=== PATIENT | male | born 1960 | race Caucasian/White ===

== ENCOUNTER 2016-11-19 17:21 | Emergency (ER) | payer SELFPAY ==
[2016-11-19] MEDS ORDERED: LORazepam 2 MG/ML VIAL ONE (17:57)
[2016-11-19] MEDS: LORazepam 1 MG TABLET PO ONE (18:03)
[2016-11-19] MEDS ORDERED: THIAMINE HCL 100 MG/ML 2ML VIAL ONE (18:19)
[2016-11-19] MEDS ORDERED: 0.9 % SODIUM CHLORIDE 1,000 ML IV ONE (18:19)
[2016-11-19] MEDS ORDERED: MVI, ADULT NO.1 WITH VIT K 10 ML VIAL IV ONE (18:21)
[2016-11-19] MEDS: THIAMINE HCL 100 MG, MVI, ADULT NO.1 WITH VIT K 10 ML, FOLIC ACID 5 MG in 0.9 % SODIUM ... IV SCH ×4 (18:30)
[2016-11-19 18:47] LABS: BASOPHILS % 0.5 (0.0-1.5); EOSINOPHILS % 2.4 % (0.0-6.8); MEAN CORPUSCULAR VOLUME 101.7 fl (80.0-100.0); MONOCYTES % 4.7 % (0.0-11.0); NEUTROPHILS # 7.5 # k/uL (1.4-7.7)
[2016-11-19 18:50] LABS: eGFR (African) > 60; eGFR (Non-African) > 60
[2016-11-19] MEDS: LORazepam 2 MG/ML VIAL IVP ONE (18:54)
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
[2016-11-19 19:51] VITALS: BP 135/82
== END 2016-11-19 19:40 | disposition short-term general hospital (02) ==
LOC: ED 17:21
DX: S01.111A Laceration without foreign body of right eyelid and periocular area, initial encounter (principal); T65.891A Toxic effect of other specified substances, accidental (unintentional), initial encounter; W19.XXXA Unspecified fall, initial encounter; Y93.9 Activity, unspecified; Y99.9 Unspecified external cause status
CPT/HCPCS: 80053; 80320; 85025; J2060; J3411; J3490; J7030; 96361; 96374; 96375; 99284; G0480; S1016

== ENCOUNTER 2016-12-27 20:28 | Emergency (ER) | payer OTHER ==
[2016-12-27] MEDS ORDERED: 0.9 % SODIUM CHLORIDE 1,000 ML IV SCH (21:00)
[2016-12-27] MEDS: KETOROLAC TROMETHAMINE 30 MG/1ML VIAL IVP ONE (21:30)
[2016-12-27] MEDS: THIAMINE HCL 100 MG, MVI, ADULT NO.1 WITH VIT K 10 ML, FOLIC ACID 5 MG in 0.9 % SODIUM ... IV SCH ×4 (21:30)
[2016-12-27] MEDS ORDERED: MVI, ADULT NO.1 WITH VIT K 10 ML VIAL IV ONE (21:32)
[2016-12-27] MEDS ORDERED: THIAMINE HCL 100 MG/ML 2ML VIAL ONE (21:32)
[2016-12-27] MEDS ORDERED: FOLIC ACID 5 MG/1 ML ONE (21:32)
[2016-12-27] MEDS ORDERED: 0.9 % SODIUM CHLORIDE 1,000 ML IV ONE (21:32)
[2016-12-27 22:18] LABS: BASOPHILS % 0.4 (0.0-1.5); EOSINOPHILS % 2.6 % (0.0-6.8); MEAN CORPUSCULAR HEMOGLOBIN 34.5 pg (28.0-34.0); MEAN CORPUSCULAR VOLUME 104.9 fl (80.0-100.0); MONOCYTES % 6.5 % (0.0-11.0); NEUTROPHILS # 4.9 # k/uL (1.4-7.7)
[2016-12-27 22:29] LABS: eGFR (African) > 60; eGFR (Non-African) > 60
--- NOTE | 2016-12-27 23:35 | ED Physician Documentation ---
General Adult - HISTORIAN Historian: patient, paramedics - HPI Stated Complaint: passed out Chief Complaint: General Adult Additional Information: inebriated Onset: other (unknown) Timing: still present Severity: moderate Modifying Factors: intoxicated Further Comments: no - ROS CONST: no problems EYES/ENT: none CVS/RESP: none GI/: none MS/SKIN/LYMPH: none NEURO/PSYCH: other (intoxicated to the point of passing out). denies: headache - PAST HX Past History: none Other History: none Surgeries/Procedures: none Immunizations: referred to PCP Allergies/Adverse Reactions: Allergies Allergy/AdvReac Type Severity Reaction Status Date / Time No Allergy Information Allergy Verified 12/28/16 02:35 Available Home Medications: Ambulatory Orders Medication Instructions Recorded NK [NK] 12/28/16 - SOCIAL HX Smoking History: cigarettes Alcohol Use: none Drug Use: none - FAMILY HX Family History: No - VITAL SIGNS Vital Signs: Vital Signs Temp Pulse Resp BP Pulse Ox 135/82 11/19/16 19:40 - REVIEWED ASSESSMENTS Nursing Assessment Reviewed: Yes Vitals Reviewed: Yes Progress - Results/Orders Results/Orders: ua, etoh, drug screen, cmp, cbc, amylase ordered - Progress Progress: pt. given 0.9 ns 1 liter, 30 mg toradol ivp, banana bag iv in er, pt. became awake, alert, conversative and ambulatory Critical Care Note - Critical Care Note Total Time (mins): 0 ED Results Lab/Radiology - Lab Results Lab Results: Lab Results 12/27/16 12/27/16 22:10 22:10 WBC 6.70 K/ul K/ul (4.00-12.00) RBC 4.07 M/ul M/ul (3.90-5.20) Hgb 14.0 g/dL g/dL (12.0-18.0) Hct 42.7 % % (37.0-53.0) MCV 104.9 fl H fl (80.0-100.0) MCH 34.5 pg H pg (28.0-34.0) MCHC 32.9 g/dL g/dL (30.0-36.0) RDW 12.8 % % (11.3-14.3) Plt Count 226 K/mm3 K/mm3 (130-400) Neut % (Auto) 73.0 % % (39.0-79.0) Lymph % (Auto) 15.0 % L % (16.0-50.0) [place] % (Auto) 6.5 % % (0.0-11.0) Eos % (Auto) 2.6 % % (0.0-6.8) Baso % (Auto) 0.4 (0.0-1.5) Neut # (Auto) 4.9 # k/uL # k/uL (1.4-7.7) Lymph # (Auto) 1.0 # k/uL # k/uL (0.6-4.0) [place] # (Auto) 0.4 # k/uL # k/uL (0.0-0.9) Eos # (Auto) 0.2 # k/uL # k/uL (0.0-0.6) Baso # (Auto) 0.0 # k/uL # k/uL (0.0-0.5) Reactive Lymphs % 2.4 % % (0.0-5.0) Reactive Lymphs # 0.2 # k/uL # k/uL (0.0-0.8) Sodium 145 mmol/L mmol/L (136-145) Potassium 3.8 mmol/L mmol/L (3.5-5.0) Chloride 108 mmol/L mmol/L (98-110) Carbon Dioxide 25 mmol/L mmol/L (20-32) BUN 6 mg/dL L mg/dL (10-26) Creatinine 0.5 mg/dL mg/dL (0.4-1.5) Est GFR ( Amer) > 60 (60 - ) Est GFR (Non-Af Amer) > 60 (60 - ) Glucose 97 mg/dL mg/dL (70-99) Calcium 9.6 mg/dL mg/dL (8.5-10.5) Total Bilirubin 0.4 mg/dL mg/dL (0.2-1.2) AST 80 U/L H U/L (0-41) ALT 64 U/L H U/L (0-45) Alkaline Phosphatase 80 U/L U/L (46-116) Total Protein 8.3 g/dL g/dL (6.0-8.5) Albumin 4.9 g/dL g/dL (3.0-5.5) Amylase 697 U/L H U/L (20-104) Ethyl Alcohol 292.0 MG/DL H MG/DL (<10.0) - Radiology Radiology Impressions: no x-rays taken - Orders Orders: ED Orders Category Date Time Status AMYLASE Routine Lab 12/27/16 22:10 Completed CBC/PLATELET/DIFF Routine Lab 12/27/16 22:10 Completed CMP Routine Lab 12/27/16 22:10 Completed DRUG SCREEN URINE MEDICAL ONLY Routine Lab 12/27/16 Ordered ETHANOL MEDICAL USE ONLY Routine Lab 12/27/16 22:10 Completed URINALYSIS Routine Lab 12/27/16 20:59 Ordered 0.9 % Sodium Chloride [Normal Saline] 1,000 ml Med 12/27/16 21:00 Ordered IV .Q1H Folic Acid [Folvite] Med 12/27/16 21:32 Discontinued 5 mg .ROUTE .STK-MED ONE Ketorolac Tromethamine [Toradol] Med 12/27/16 20:59 Discontinued 30 mg IVP NOW ONE Mvi, Adult No.1 with Vit K [M.v.i. Adult] Med 12/27/16 21:32 Discontinued 10 ml IV .STK-MED ONE Thiamine HCl Med 12/27/16 21:32 Discontinued 200 mg .ROUTE .STK-MED ONE Thiamine HCl 100 mg Med 12/27/16 21:00 Ordered Mvi, Adult No.1 with Vit K [M.v.i. Adult] 10 ml Folic Acid [Folvite] 5 mg 0.9 % Sodium Chloride [Normal Saline] 1,000 ml IV Q8 General Adult Physical Exam - PHYSICAL EXAM GENERAL APPEARANCE: presented to ER responsive to painful stimuli EENT: eye inspection normal, ENT inspection normal, pharynx normal, no signs of dehydration, STEFANY, nystagmus NECK: normal inspection, thyroid normal, supple RESPIRATORY: no resp distress, chest non-tender, breath sounds normal CVS: reg rate & rhythm, heart sounds normal, equal pulses, no murmur, no gallop , PMI nml, no JVD, no friction rub ABDOMEN: soft, no organomegaly, normal bowel sounds, no abdominal bruit, no distension, non-tender BACK: normal inspection, no CVA tenderness SKIN: warm/dry, normal color EXTREMITIES: non-tender, normal range of motion, no evidence of injury, no edema NEURO: CN's nml as tested, motor nml, sensation nml, other (initially unresponsive, progressed from inebriated and slurred to conversational, less inebriated, ambulatory) Discharge Clincal Impression: Alcohol intoxication Qualifiers: Complication of substance-induced condition: uncomplicated Qualified Code(s): F10.920 - Alcohol use, unspecified with intoxication, uncomplicated Referrals: Primary Doctor,No [Primary Care Provider] - 2 Days Home Medications: Ambulatory Orders NK [NK] 12/28/16 Comments: discharged in stable condition to home Condition: Stable Disposition: 01 HOME, SELF-CARE Decision to Admit: NO Decision Time: 23:32
[2016-12-28 02:48] VITALS: BP 106/86
== END 2016-12-27 23:35 | disposition home or self-care (01) ==
LOC: ED 20:28
DX: F10.920 Alcohol use, unspecified with intoxication, uncomplicated (principal)
CPT/HCPCS: 80053; 80320; 82150; 85025; J3411; J3490; J7030; 96361; 96374; 99283; G0480; S1016

== ENCOUNTER 2018-04-26 08:07 | Emergency (ER) | payer OTHER ==
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
[2018-04-26] MEDS ORDERED: DIPH,PERTUSS(ACELL),TET VAC/PF 0.5 ML DISP.SYRIN IM ONE (08:31)
[2018-04-26] MEDS ORDERED: THIAMINE HCL 100 MG, MULTIVIT INFUSN,ADULT 1,VIT K 10 ML, FOLIC ACID 5 MG in 0.9 % SODI... IV ONE (08:33)
[2018-04-26] MEDS ORDERED: 0.9 % SODIUM CHLORIDE 1,000 ML IV ONE ×3 (08:39→12:25)
[2018-04-26] MEDS ORDERED: THIAMINE HCL 200 MG/2 ML VIAL ONE (08:39)
[2018-04-26] MEDS ORDERED: MULTIVIT INFUSN,ADULT 1,VIT K 10 ML VIAL IV ONE (08:39)
[2018-04-26] MEDS ORDERED: FOLIC ACID 5 MG/1 ML ONE (08:39)
[2018-04-26 08:41] LABS: BASOPHILS % 0.5 (0.0-1.5); MONOCYTES % 10.4 % (0.0-11.0)
[2018-04-26] MEDS ORDERED: LIDOCAINE HCL 1% PF 50MG/5ML AMP (IM/SUTURE/PAIN CLINIC) ONE (09:53)
--- NOTE | 2018-04-26 10:09 | Diagnostic Imaging Report ---
MIRELA SHELBY [facility] [id number] [facility] [address] [address] Report Submission Date: Apr 26, 2018 9:24:23 AM JOIST SETTER Patient Study Name: KAYLIN KARIMI Date: Apr 26, 2018 8:35:50 AM JOIST SETTER Modality Type: DX Gender: M Description: LOWER EXTREMITY : 58 Institution: [facility] Physician: MIRELA SHELBY Three views of the left knee Clinical history: Fall. Laceration. Findings: Examination left knee in AP, lateral and sunrise views demonstrates degenerative changes with slight narrowing the joint space worse medially. There is mild prominence of the tibial spines. There is no evident fracture or joint effusion. A soft tissue injury is seen laterally. Impression: 1. Degenerative changes. 2. No fracture. Electronically signed on Apr 26, 2018 9:24:23 AM JOIST SETTER by: Wallace HORTON
--- NOTE | 2018-04-26 10:10 | Diagnostic Imaging Report ---
MIRELA SHELBY [facility] [id number] [facility] [address] [place] [address]. [id number] Report Submission Date: Apr 26, 2018 9:27:46 AM GROUNDSKEEPER SUPERVISOR Patient Study Name: KAYLIN KARIMI Date: Apr 26, 2018 8:49:32 AM GROUNDSKEEPER SUPERVISOR Modality Type: DX Gender: M Description: UPPER EXTREMITY : 58 Institution: [facility] Physician: MIRELA SHELBY Three views of the right hand Clinical history: Fall with injury. Pain. Findings: Examination of the right hand in palmar, lateral and oblique views demonstrates degenerative changes with narrowing of the interphalangeal joints. There is a metallic foreign body the soft tissues the 4th finger adjacent to the distal phalanx. There is deformity of the 5th proximal phalanx although no acute fracture line is evident. This is thought to be related to old injury. There is no other evidence of acute fracture. Degenerative changes are seen in the radiocarpal and lateral intercarpal joints. Impression: 1. Degenerative and remote posttraumatic changes. 2. No acute fracture. Electronically signed on Apr 26, 2018 9:27:46 AM GROUNDSKEEPER SUPERVISOR by: Wallace HORTON
--- NOTE | 2018-04-26 10:10 | Diagnostic Imaging Report ---
MIRELA SHELBY [facility] [address] [facility] [address] [address] Report Submission Date: Apr 26, 2018 9:25:07 AM PALLET RECTIFIER Patient Study Name: KAYLIN KARIMI Date: Apr 26, 2018 8:38:10 AM PALLET RECTIFIER Modality Type: DX Gender: M Description: LOWER EXTREMITY : 58 Institution: [facility] Physician: MIRELA SHELBY Two views of the left tibia and fibula Clip history: Pain. Fall. Findings: Examination of the left tibia and fibula in AP and lateral views fails to demonstrate evidence of fracture, dislocation or other bone or joint pathology. Electronically signed on Apr 26, 2018 9:25:07 AM PALLET RECTIFIER by: Wallace HORTON
--- NOTE | 2018-04-26 10:11 | Diagnostic Imaging Report ---
MIRELA SHELBY [facility] [address] [address] Report Submission Date: Apr 26, 2018 9:31:53 AM WOOD STAINER Patient Study Name: KAYLIN KARIMI Date: Apr 26, 2018 8:45:04 AM WOOD STAINER Modality Type: DX Gender: M Description: SPINE : 58 Institution: [facility] Physician: MIRELA SHELBY Three-view lumbar spine Clinical history: Pain with movement. Findings: Examination of the lumbar spine in AP, lateral and lateral coned-down views demonstrates vertebrae to be anatomically aligned. There is an old compression fracture of the L1 vertebra with 40% loss of vertebral height anteriorly. Anterior and lateral osteophytes are seen throughout the lumbar spine. Pedicles are intact. There is no acute fracture. Impression: 1. Spondylosis. 2. Old fracture L1. Electronically signed on Apr 26, 2018 9:31:53 AM ANA by: Wallace HORTON
--- NOTE | 2018-04-26 10:12 | Diagnostic Imaging Report ---
MIRELA SHELBY [facility] [id number] [facility] [address] [place], [place]. [address] Report Submission Date: Apr 26, 2018 9:34:04 AM ANA Patient Study Name: KAYLIN KARIMI Date: Apr 26, 2018 8:36:53 AM BOTTLING EQUIPMENT SALES REPRESENTATIVE Modality Type: CT\SR Gender: M Description: CT BRAIN W/O CONTRAST : 58 Institution: [facility] Physician: MIRELA SHELBY Head CT without contrast Clinical history: Headache. Altered mental status. Confusion. Technique: CT examination of the brain is performed in contiguous axial slices with sagittal and coronal reconstructions. Findings: The 4th ventricle lies in a normal midline position. The ventricles and sulci are prominent secondary to atrophy. Chronic small vessel ischemic changes are present in the periventricular regions. There is no hypodense or hyperdense mass or intracranial hemorrhage. Visualized paranasal sinuses and the mastoid air cells are clear. Impression: 1. Atrophy and chronic small vessel ischemic changes. 2. No acute intracranial changes. Electronically signed on Apr 26, 2018 9:34:04 AM BOTTLING EQUIPMENT SALES REPRESENTATIVE by: Wallace HORTON
[2018-04-26 11:41] LABS: TOTAL PROTEIN 6.9 g/dL (6.0-8.5)
[2018-04-26 12:28] VITALS: BP 122/74
[2018-04-26 14:31] LABS: APPEARANCE,URINE CLEAR (CLEAR); COLOR,URINE YELLOW (YELLOW); OCCULT BLOOD,URINE NEGATIVE (NEGATIVE); PH URINE 5.5 (5.0 - 8.0); UROBILINOGEN URINE 0.2 Eu (0.2-1.0)
[2018-04-26 14:32] LABS: CANNABINOIDS NON NEGATIVE ng/mL (< 50); METHYLENEDIOXYMETHAMPHETAMINE NEGATIVE ng/mL (<500)
[2018-04-28 15:21] LABS: CANNABINOIDS CONFIRMATION 72 ng/mL (<15)
== END 2018-04-26 11:24 | disposition home or self-care (01) ==
LOC: ED 08:07
DX: S81.812A Laceration without foreign body, left lower leg, initial encounter (principal); X58.XXXA Exposure to other specified factors, initial encounter; M54.9 Dorsalgia, unspecified
CPT/HCPCS: 12002; 36415; 70450; 72100; 73130; 73562; 73590; 80053; 80320; 80377; 81002; 85025; 90471; 90715; 96365; 99284; 99285; J3411; J3490; J7030; G0480; G0481; S1016